=== PATIENT | female | born 1965 | race Caucasian/White ===

== ENCOUNTER 2018-11-07 15:12 | Outpatient (CLI) | payer MEDICARE, MEDICAID ==
--- NOTE | 2018-11-07 15:52 | RAD ---
3 VIEWS LEFT WRIST: Date: 11/07/18 COMPARISON: None. HISTORY: Left wrist pain. FINDINGS: 3 views of the left wrist show no evidence of acute fracture or dislocation. No degenerative changes are seen. Mild soft tissue swelling is seen. IMPRESSION: No evidence of acute osseous abnormality. POS: C
== END 2018-11-07 15:13 | disposition home or self-care (01) ==
LOC: RAD-FRANK 15:12
PROVIDERS: ATTEND Nurse Practitioner Family
DX: M25.532 Pain in left wrist (principal)